=== PATIENT | female | born 1985 | race African-American/Black ===

== ENCOUNTER 2023-10-15 01:28 | Emergency (ER) | payer MEDICAID ==
[~2023-10-15] VITALS: Ht 167.6 cm; Wt 82.0 kg
[2023-10-15 01:34] VITALS: O2SAT 100
[2023-10-15] MEDS: TETRACAINE 0.5% OPHTH DROPS 4ML BOTHEYE ONE (01:45)
[2023-10-15] MEDS: FLUORESCEIN SODIUM 1MG/STRIP BOTHEYE ONE (01:45)
[2023-10-15 01:54] LABS: BASOPHILS % 0.2 % (0.0-2.0); EOSINOPHILS % 0.3 % (0.0-5.0); HEMOGLOBIN. 10.3 g/dL (12.0-16.0); LYMPHOCYTES % 34.8 % (20.0-50.0); MEAN CORPUSCULAR HGB CONC 33.2 g/dL (31.0-37.0); MEAN CORPUSCULAR VOLUME 84.5 fL (81.0-99.0); MEAN PLATELET VOLUME 8.4 fl (7.4-10.4); MONOCYTES % 11.3 % (2.0-8.0); NEUTROPHILS % 53.4 % (40.0-76.0); PLATELET 285 x1000/uL (130-400); RED BLOOD CELL COUNT 3.67 mill/uL (4.2-5.4); RED CELL DISTRIBUTION WIDTH 14.8 % (11.6-14.6); WHITE BLOOD COUNT 3.8 x1000/uL (4.5-11.0)
[2023-10-15 02:11] LABS: ACETAMINOPHEN < 2 ug/mL (10-30); ALANINE AMINOTRANSFERASE 27 IU/L (10-49); ALBUMIN 3.7 g/dL (3.2-4.8); ASPARTATE AMINOTRANSFERASE 28 IU/L (<34); BILIRUBIN TOTAL 0.9 mg/dL (0.1-1.0); CALCIUM 8.8 mg/dL (8.7-10.4); CARBON DIOXIDE 30 mEq/L (21-32); CHLORIDE 103 mEq/L (98-107); CREATININE 0.5 mg/dL (0.6-1.0); ETHANOL BLOOD < 10 mg/dL (<10); GLUCOSE 121 mg/dL (70-105); POTASSIUM 3.4 mEq/L (3.5-5.1); PROTEIN TOTAL 6.4 g/dL (6.0-8.3); SODIUM 140 mEq/L (136-145); UREA NITROGEN BLOOD 8 mg/dL (9-23)
[2023-10-15] MEDS: FLUORESCEIN SODIUM 1MG/STRIP BOTHEYE NR (05:49)
[2023-10-15] MEDS: TETRACAINE 0.5% OPHTH DROPS 4ML BOTHEYE NR (05:49)
[2023-10-15 07:16] LABS: CLARITY URINE CLOUDY (CLEAR); COLOR URINE DARK YELLOW (YELLOW); GLUCOSE URINE NEGATIVE (NEGATIVE); KETONES URINE TRACE (NEGATIVE); LEUKOCYTE ESTERASE URINE 2+ (NEGATIVE); NITRITE URINE NEGATIVE (NEGATIVE); OCCULT BLOOD URINE NEGATIVE (NEGATIVE); PROTEIN URINE TRACE (NEGATIVE); SPECIFIC GRAVITY URINE 1.024 (1.005-1.030)
[2023-10-15 07:37] LABS: SQUAMOUS EPITHELIAL CELL URINE 3+ /lpf (RARE/1+)
[2023-10-15 07:38] LABS: MUCUS URINE 3+ /lpf (< = 2+)
[2023-10-15 07:42] LABS: BACTERIA URINE 3+
[2023-10-15 08:09] LABS: *AMPHETAMINES SCREEN URINE PRESUMPTIVE POSITIVE (NEGATIVE); *BARBITURATES SCREEN URINE NEGATIVE (NEGATIVE); *BENZODIAZEPINES SCREEN URINE NEGATIVE (NEGATIVE); *COCAINE SCREEN URINE NEGATIVE (NEGATIVE); CANNABINOID URINE SCREEN NEGATIVE (NEGATIVE); ECSTASY MDMA SCREEN URINE CONF.TEST INDICATED (NEGATIVE); METHADONE URINE SCREEN Neg (NEGATIVE); OPIATES URINE SCREEN NEGATIVE (NEGATIVE); PHENCYCLIDINE URINE SCREEN NEGATIVE (NEGATIVE)
[2023-10-15] MEDS: CIPROFLOXACIN 0.3% OPHTH SOLN 2.5ML RIGHTEYE ONE (12:05)
[2023-10-15 14:50] VITALS: BP 128/60; PULSE 110; RESP 20; TEMP 98.3
== END 2023-10-15 15:43 | disposition short-term general hospital (02) ==
LOC: ER 01:28 → 5WST 08:39 → UNDOADMIN 08:39 → EDBEDREQ 09:06 → UNDODISIN 14:53
DX: H44.19 Other endophthalmitis (principal); E03.9 Hypothyroidism, unspecified; J45.909 Unspecified asthma, uncomplicated; F31.9 Bipolar disorder, unspecified
CPT/HCPCS: 80053; 80305; 81003; 80307; 80329; 80320; 85025; 36415; 99285; Z7610 ×3; A4565; G0480